=== PATIENT | male | born 1965 | race Caucasian/White ===

== ENCOUNTER 2019-09-12 21:25 | Emergency (ER) | payer BC ==
--- NOTE | 2019-09-12 21:36 | UC ---
Abdominal Pain Male HPI - HPI Summary HPI Summary: PT PRESENTS WITH WORSENING ABDOMINAL PAIN, NAUSEA, VOMITING, AND DIARRHEA THAT BEGAN ON 09/09/19. PT HAS been able to drink fluids but is unable to "keep anything down". Pt states that abdominal pain has not improved and that it is now generalized and he is "doubled over in pain" . Pt declines chest pain - History of Current Complaint Stated Complaint: STOMACH COMPLAINT Time Seen by Provider: 09/12/19 21:31 Hx Obtained From: Patient Onset/Duration: Sudden Onset, Lasting Days, Still Present, Worse Since - onset Timing: Constant Severity Initially: Moderate Severity Currently: Severe Location: Diffuse Radiates: No Character: Colicy, Cramping, Dull, Sharp Aggravating Factor(s): Food Alleviating Factor(s): Nothing Associated Signs And Symptoms: Positive: Vomiting, Diarrhea - Risk Factors Testicular Torsion: Negative Cardiac Risk Factors: Negative - Allergies/Home Medications Allergies/Adverse Reactions: Allergies Allergy/AdvReac Type Severity Reaction Status Date / Time No Known Allergies Allergy Verified 09/12/19 21:33 Home Medications: Home Medications NK [No Home Medications Reported] 09/12/19 [History Confirmed 09/12/19] PMH/Surg Hx/FS Hx/Imm Hx Previously Healthy: Yes GI/ History: Other - unsure of GI hx He has not had a colonoscopy - Family History Known Family History: Positive: Cardiac Disease - Social History Occupation: Employed Full-time Lives: With Family Have You Smoked in the Last Year: No - Immunization History Vaccination Up to Date: Yes Review of Systems All Other Systems Reviewed And Are Negative: Yes Constitutional: Positive: Chills, Fatigue Skin: Positive: Negative Eyes: Positive: Negative ENT: Positive: Negative Respiratory: Positive: Negative Cardiovascular: Positive: Negative Gastrointestinal: Positive: Abdominal Pain, Vomiting, Diarrhea, Nausea Genitourinary: Positive: Negative Motor: Positive: Negative Neurovascular: Positive: Negative Musculoskeletal: Positive: Myalgia Neurological: Positive: Negative Psychological: Positive: Negative Is Patient Immunocompromised?: No Physical Exam Triage Information Reviewed: Yes Appearance: Ill-Appearing, Pain Distress Vital Signs Reviewed: Yes Eye Exam: Normal ENT Exam: Normal ENT: Positive: Normal ENT inspection Dental Exam: Normal Neck exam: Normal Respiratory Exam: Normal Cardiovascular Exam: Normal Abdomen Description: Positive: Guarding, Other: - generalized tenderness Bowel Sounds: Positive: Present Musculoskeletal Exam: Normal Neurological Exam: Normal Psychological Exam: Normal Skin Exam: Normal Abd Pain Male Course/Dx - Course Course Of Treatment: Pt was recommended to go to the closest emergency room. Pt verbalized understanding but reported that he would most likely go to [facility]. Pt's c/ o abdominal pain was extremely tender with PE did not appear to be only attributed gastronenteritis. PT denies hx of diverticulitis or other GI disorder. - Differential Dx/Clinical Impression Differential Diagnosis/HQI/PQRI: AMI, Appendicitis, Diverticulitis, Other - gastorenteritis. Provider Diagnosis: Abdominal pain Discharge ED - Sign-Out/Discharge Documenting (check all that apply): Patient Departure All imaging exams completed and their final reports reviewed: No Studies - Discharge Plan Condition: Stable Disposition: HOME-RECOMMEND TO ED Patient Education Materials: Acute Abdominal Pain (ED) Referrals: [facility] [Outside] - If Needed No Primary Care Phys,NOPCP [Primary Care Provider] - Additional Instructions: IT IS RECOMMENDED THAT YOU GO TO THE CLOSEST EMERGENCY ROOM NOW. - Billing Disposition and Condition Condition: STABLE Disposition: Home-Recommend to ED
[2019-09-12 21:41] VITALS: BP 124/83
[2019-09-12] MEDS ORDERED: Ondansetron TAB* 4 MG PO ONE (21:56)
[2019-09-12] MEDS ORDERED: Ondansetron ODT TAB* 4 MG PO ONE (22:00)
== END 2019-09-12 22:03 | disposition home health service (06) ==
LOC: UCCORT 21:25
DX: R10.9 Unspecified abdominal pain (principal); R11.2 Nausea with vomiting, unspecified; R19.7 Diarrhea, unspecified; R68.83 Chills (without fever); R53.83 Other fatigue; M79.10 Myalgia, unspecified site
CPT/HCPCS: 99202; A9270-GY; G0463